=== PATIENT | male | born 1980 | race Caucasian/White ===

== ENCOUNTER 2019-08-20 13:42 | Emergency (ER) | payer MEDICAID, SELFPAY ==
[2019-08-20 14:17] VITALS: BP 140/108; PULSE 130; RESP 14; TEMP 37.2; O2SAT 99
[2019-08-20 14:19] LABS: Basophils Percent Auto 0.2 % (0.2-1.2); Eosinophils Percent Auto 0.4 % (0-4.4); Hematocrit 43.4 % (42.0-52.0); Hemoglobin 15.1 g/dL (14.0-18.0); Immature Granulocyte Absolute 0.02 K/mm3 (0.00-0.031); Immature Granulocyte Percent A 0.2 % (0-0.5); Lymphocytes Absolute Auto 3.59 K/mm3 (0.9-3.2); Lymphocytes Percent Auto 44.2 % (18.3-44.2); Mean Corpuscular HGB Conc 34.8 g/dl (32-36); Mean Corpuscular Hemoglobin 30.3 pg (26-34); Mean Platelet Volume 8.1 fl (7.4-10.4); Monocytes Absolute Auto 0.5 K/mm3 (0.1-0.6); Monocytes Percent Auto 5.7 % (2.6-8.5); Neutrophils Percent Auto 49.3 % (45.5-73.1); Platelet Count Result 315 k/mm3 (150-375); Red Blood Count 4.99 M/mm3 (4.6-6.20); White Blood Count 8.1 K/mm3 (4.5-10.0)
[2019-08-20 14:23] LABS: Add Urine Microscopic? NO; Appearance Urine Clear (Clear); Bilirubin Urine Negative (Negative); Blood Urine Negative (Negative); Color Urine Straw (Yellow); Glucose Urine UA Negative (Negative); Ketones Urine Negative (Negative); Leukocyte Esterase Ur Negative LEU/UL (Negative); Nitrate Urine Negative (Negative); Protein Urine Negative (Negative); RBC Urine 0-2 /hpf (0-2); Specific Grav Ur 1.006 (1.001-1.035); Urobilinogen Urine Negative mg/dL (<2.0); WBC Urine 0-3 /hpf
[2019-08-20 14:31] LABS: Blood Urea Nitrogen 7 mg/dL (9-20); Carbon Dioxide 30 mmol/L (22-30); Chloride 100 mmol/L (98-107); Estimated Glomerular Filt Rate > 60; Glucose 111 mg/dL (75-110); Potassium 3.9 mmol/L (3.4-5.0); Sodium 142 mmol/L (137-145)
[2019-08-20 14:38] LABS: Amphetamine Screen Urine Negative (Negative); Barbiturate Screen Urine Negative (Negative); Benzodiazepines Screen Urine Negative (Negative); Cannabinoid Screen Urine Negative (Negative); Cocaine Screen Urine Negative (Negative); Methadone Screen Urine Negative (Negative); Opiate Screen Urine Negative (Negative); Phencyclidine Screen Urine Negative (Negative)
[2019-08-20 14:56] LABS: Ethanol 400 mg/dL (<10)
[2019-08-20 15:13] VITALS: PULSE 94; O2SAT 99
--- NOTE | 2019-08-20 15:54 | ED.PSYCH ---
HPI - Psych General Chief Complaint: Psychiatric Symptoms <Anastasiia Tomlin MD - Last Filed: 08/21/19 10:35> Stated Complaint: BROUGHT IN BY PD, VOLUNTARY <Anastasiia Tomlin MD - Last Filed: 08/21/19 10:35> Time Seen by Provider: 08/20/19 15:52 <Anastasiia Tomlin MD - Last Filed: 08/21/19 10:35> History of Present Illness HPI Narrative: Patient brought in by the police for suicidal ideation. He is going through a difficult divorce, and had stated that he wanted to kill himself and he has guns. The patient does not know who called this into the police. Today took his 3 guns out of the house, and brought him into the hospital for evaluation. He was made involuntary, and has to wait for his alcohol to be less than 80 for a psych evaluation. His alcohol is 400 upon admission, when he is unhappy that he cannot have his cell phone to call someone to pick him up. I explained that I would be back in the morning and see him then and hopefully we would get him discharged then. He denies any medical illness. He denies depression. He is off work for a week. He was in [place] for a week in February. Surgical history is appendectomy. He drinks alcohol. <Anastasiia Tomlin MD - Last Filed: 08/21/19 10:35> complaint: suicidal ideation <Anastasiia Tomlin MD - Last Filed: 08/21/19 10:35> History of same: Yes <Anastasiia Tomlin MD - Last Filed: 08/21/19 10:35> Related Data Home Medications: Home Medications Medication Instructions Recorded Confirmed escitalopram oxalate [Lexapro] 20 mg PO DAILY 08/20/19 <Anastasiia Tomlin MD - Last Filed: 08/21/19 10:35> Allergies/Adverse Reactions: Allergies Allergy/AdvReac Type Severity Reaction Status Date / Time No Known Allergies Allergy Mild Verified 08/20/19 14:21 <Anastasiia Tomlin MD - Last Filed: 08/21/19 10:35> Review of Systems Review of Systems: Narrative: CONSTITUTIONAL: Denies fever, chills, or sweats. EYES: Denies visual changes, redness, or discharge. ENT: Denies rhinorrhea, congestion, sore throat, or otalgia. CARDIOVASCULAR: Denies chest pain, palpitations, or edema. RESPIRATORY: Denies cough or dyspnea. GASTROINTESTINAL: Denies abdominal pain, nausea, vomiting, or diarrhea. GENITOURINARY: Denies dysuria or hematuria. SKIN: Denies rash or itching. MUSCULOSKELETAL: Denies back pain, joint pain, or myalgia. NEUROLOGIC: Denies headache, numbness, or weakness. PSYCHIATRIC: Denies anxiety or depression. <Anastasiia Tomlin MD - Last Filed: 08/21/19 10:35> [facility] Surgical History Surgical History: Surgical History History of appendectomy <Anastasiia Tomlin MD - Last Filed: 08/21/19 10:35> Social History Social History: Social History (Updated 08/20/19 @ 16:28 by Anastasiia Tomlin MD) Alcohol intake: current <Anastasiia Tomlin MD - Last Filed: 08/21/19 10:35> Exam Narrative: Exam Narrative: GENERAL: Well-appearing, well-nourished, and in no acute distress. HEAD: Normocephalic, atraumatic. EYES: PERRLA and EOMI. ENT: Nares clear, no rhinorrhea or epistaxis. Mucous membranes moist. NECK: Supple. CHEST: Clear to auscultation. No respiratory distress. HEART: Regular rate and rhythm. No murmur heard. Normal peripheral pulses. ABDOMEN: Soft, nontender, nondistended, normal active bowel sounds. EXTREMITIES: Normal range of motion. No edema. SKIN: Warm, dry, no rash. NEURO: No focal deficits. Alert and oriented x3. PSYCH: Normal mood and affect. <Anastasiia Tomlin MD - Last Filed: 08/21/19 10:35> Course Reevaluation(s) Reevaluation #1: Patient is resting comfortably waiting for dinner. Again he asked if he could leave and I told him not until he seen by the psych nurse. Told him I will see him in the morning before he gets discharged. I will be checking out to Dr. Ramos at 7 PM. <Anastasiia Tomlin MD - Last Filed: 08/21/19 10:35> Date: 08/20/19 <Anastasiia Tomlin MD - Last Fi
--- NOTE | 2019-08-20 16:48 | PC.NURSE ---
Called to pt's room - Mr Pascal is sitting on the floor explaining how the situation is going to go. He states he wants his cell phone and clothes back States will saundra everybody holding him against his will I attempted to explain he is under an involuntary petition by the [facility] and he will not be leaving until his blood alcohol level is down and crisis has been out to eval him. Pt states I want all your information so I can saundra you for holding me against my will .
[2019-08-21 03:58] LABS: Ethanol < 10 mg/dL (<10)
[2019-08-21 05:27] VITALS: BP 138/85; PULSE 99; RESP 16; O2SAT 100
== END 2019-08-21 05:29 | disposition home or self-care (01) ==
PROVIDERS: Emergency Medicine; Emergency Provider Emergency Medicine; PCP Family Medicine
DX: F10.229 Alcohol dependence with intoxication, unspecified (principal); Y90.8 Blood alcohol level of 240 mg/100 ml or more
CPT/HCPCS: 36415; 80048; 80307; 81003; 84443; 85025; 99284

== ENCOUNTER 2019-11-24 16:08 | Emergency (ER) | payer MEDICAID, SELFPAY ==
[2019-11-24 16:17] VITALS: BP 150/91; PULSE 82; RESP 18; TEMP 36.4; O2SAT 100
[2019-11-24 16:52] LABS: Basophils Percent Auto 0.4 % (0.2-1.2); Eosinophils Percent Auto 0.4 % (0-4.4); Hematocrit 40.6 % (42.0-52.0); Hemoglobin 14.4 g/dL (14.0-18.0); Immature Granulocyte Absolute 0.02 K/mm3 (0.00-0.031); Immature Granulocyte Percent A 0.4 % (0-0.5); Lymphocytes Absolute Auto 1.14 K/mm3 (0.9-3.2); Lymphocytes Percent Auto 20.5 % (18.3-44.2); Mean Corpuscular HGB Conc 35.5 g/dl (32-36); Mean Corpuscular Hemoglobin 31.7 pg (26-34); Mean Corpuscular Volume 89.4 fl (80-100); Mean Platelet Volume 8.3 fl (7.4-10.4); Monocytes Absolute Auto 0.6 K/mm3 (0.1-0.6); Monocytes Percent Auto 11.2 % (2.6-8.5); Neutrophils Absolute Auto 3.7 K/mm3 (1.3-6.7); Neutrophils Percent Auto 67.1 % (45.5-73.1); Platelet Count Result 137 k/mm3 (150-375); Red Blood Count 4.54 M/mm3 (4.6-6.20); Red Cell Distribution Width 13.1 % (11.5-14.5); White Blood Count 5.6 K/mm3 (4.5-10.0)
[2019-11-24 17:04] LABS: Alanine Aminotransferase 80 U/L (4-50); Albumin Level 4.8 g/dL (3.5-5.1); Alkaline Phosphatase 100 U/L (38-126); Anion Gap 11 mmol/L (8-16); Aspartate Amino Transferase 99 U/L (17-59); Bilirubin,Total 1.3 mg/dL (0.2-1.3); Blood Urea Nitrogen 12 mg/dL (9-20); Calcium 9.3 mg/dL (8.4-10.2); Carbon Dioxide 30 mmol/L (22-30); Chloride 92 mmol/L (98-107); Estimated CRCL calculation 116 ml/min; Estimated Glomerular Filt Rate > 60; Glucose 113 mg/dL (75-110); Magnesium 1.9 mg/dL (1.6-2.3); Potassium 3.5 mmol/L (3.4-5.0); Sodium 133 mmol/L (137-145)
--- NOTE | 2019-11-24 17:16 | ED.ALCOHOL ---
HPI - Alcohol General Chief Complaint: Alcohol Stated Complaint: detoxing Time Seen by Provider: 11/24/19 16:34 Source: patient Mode of arrival: ambulatory Limitations: no limitations History of Present Illness HPI narrative: Patient is a 39-year-old male complaining of nausea, headache, occasional mild tremors after withdrawing from alcohol 4 days ago. Patient states he was drinking heavily prior and stopped approximately 4 days ago. He denies any chest pain shortness of breath abdominal pain diarrhea or fever. Related Data Home Medications Medication Instructions Recorded Confirmed escitalopram oxalate [Lexapro] 20 mg PO DAILY 08/20/19 Allergies Allergy/AdvReac Type Severity Reaction Status Date / Time Penicillins Allergy Unknown Verified 11/24/19 16:40 [facility] Social History Social History (Updated 08/20/19 @ 16:28 by Anastasiia Tomlin MD) Alcohol intake: current Gender identity (if verbalized by the patient): Male Sexual Orientation (if Verbalized by the Patient): Straight or Heterosexual Course Vital Signs Vital signs: Vital Signs Temperature 36.4 C 11/24/19 16:17 Pulse Rate 82 11/24/19 16:17 Respiratory Rate 18 11/24/19 16:17 Blood Pressure 150/91 H 11/24/19 16:17 Pulse Oximetry 100 11/24/19 16:17 Temperature 36.7 C 11/24/19 17:32 Pulse Rate 84 11/24/19 17:32 Respiratory Rate 14 11/24/19 17:32 Blood Pressure 133/97 H 11/24/19 17:32 Pulse Oximetry 99 11/24/19 17:32 MDM - Alcohol MDM Narrative Medical decision making narrative: CIWA score of 12, which amounts to a mild withdrawal symptoms. I have reviewed his labs and no electrolyte abnormality seen. Based on CIWA score, physical exam and lab findings I will discharge the patient home since patient did not exhibit any concerning signs and symptoms of delirium tremens. Differential Diagnosis Differential diagnosis: Likely hypomagnesemia, alcohol intoxication and alcohol withdrawal syndrome Medical Records Attestation: I reviewed the patient's medical records. Lab Data Attestation: I reviewed the patient's lab results. Result diagrams: 11/24/19 16:47 11/24/19 16:47 Labs: Lab Results 11/24/19 11/24/19 Range/Units 16:47 16:47 WBC 5.6 (4.5-10.0) K/mm3 RBC 4.54 L (4.6-6.20) M/mm3 Hgb 14.4 (14.0-18.0) g/dL Hct 40.6 L (42.0-52.0) % MCV 89.4 (80-100) fl MCH 31.7 (26-34) pg MCHC 35.5 (32-36) g/dl RDW 13.1 (11.5-14.5) % Plt Count 137 L D (150-375) k/mm3 MPV 8.3 (7.4-10.4) fl Immature Gran % (Auto) 0.4 (0-0.5) % Neut % (Auto) 67.1 (45.5-73.1) % Lymph % (Auto) 20.5 (18.3-44.2) % Cataño % (Auto) 11.2 H (2.6-8.5) % Eos % (Auto) 0.4 (0-4.4) % Baso % (Auto) 0.4 (0.2-1.2) % Lymph # (Auto) 1.14 (0.9-3.2) K/mm3 Cataño # (Auto) 0.6 (0.1-0.6) K/mm3 Eos # (Auto) 0.0 (0-0.3) K/mm3 Baso # (Auto) 0.0 (0.0-0.1) K/mm3 Abs Immat Gran (auto) 0.02 (0.00-0.031) K/mm3 Absolute Neuts (auto) 3.7 (1.3-6.7) K/mm3 Absolute Nucleated RBC 0.0 (0.0-0.012) K/mm3 Nucleated RBC % 0.0 (0.0-0.2) % Sodium 133 L (137-145) mmol/L Potassium 3.5 (3.4-5.0) mmol/L Chloride 92 L (98-107) mmol/L Carbon Dioxide 30 (22-30) mmol/L Anion Gap 11 (8-16) mmol/L BUN 12 D (9-20) mg/dL Creatinine 0.70 (0.7-1.3) mg/dL Estim Creat Clear Calc 116 ml/min Estimated GFR > 60 (59 - ) Glucose 113 H (75-110) mg/dL Calcium 9.3 (8.4-10.2) mg/dL Magnesium 1.9 (1.6-2.3) mg/dL Total Bilirubin 1.3 (0.2-1.3) mg/dL AST 99 H (17-59) U/L ALT 80 H (4-50) U/L Alkaline Phosphatase 100 (38-126) U/L Total Protein 7.0 (6.3-8.2) g/dL Albumin 4.8 (3.5-5.1) g/dL ECG Data EKG #1: ECG completion date: 11/26/19 ECG completion time: 17:28 EKG Interpretation: normal rate (hr 76), sinus rhythm, no ectopy, normal QT and NL axis Discharge Plan Discharge Clinical Impression: A
--- NOTE | 2019-11-24 17:19 | ECG_ITS ---
Measurements Intervals [place] Rate: 76 P: 26 TN: 114 QRS: 76 QRSD: 103 T: 66 QT: 365 QTc: 411 Interpretive Statements SINUS RHYTHM WITH SHORT TN INTERVAL BASELINE ARTIFACT- I, II, III, AVR, AVL, AVF, V1 BORDERLINE ECG Electronically Signed On 11-25-2019 7:42:29 CDT by Leonard Calderón D.O.
[2019-11-24 17:32] VITALS: BP 133/97; PULSE 84; RESP 14; TEMP 36.7; O2SAT 99
[2019-11-24] MEDS: LORazepam (*CRX) 1 MG TABLET PO (18:18)
[2019-11-24 18:21] VITALS: BP 144/95; PULSE 80; RESP 17; TEMP 37.1; O2SAT 99
[2019-11-24 19:39] VITALS: BP 143/91; PULSE 91; RESP 13; TEMP 36.7; O2SAT 99
== END 2019-11-24 19:41 | disposition home or self-care (01) ==
PROVIDERS: Emergency Provider Emergency Medicine; PCP Family Medicine
DX: F10.239 Alcohol dependence with withdrawal, unspecified (principal); R94.31 Abnormal electrocardiogram [ECG] [EKG]
CPT/HCPCS: 36415; 80053; 83735; 85025; 93005; 96365; 99284; A9270; J3411; J3475; J7121

== ENCOUNTER 2020-03-28 17:13 | Emergency (ER) | payer OTHER, SELFPAY ==
[2020-03-28] VITALS (21 sets, daily range): BP systolic 108–154; BP diastolic 71–96; PULSE 86–123; RESP 10–39; TEMP 36.4; O2SAT 95–100
--- NOTE | ~2020-03-28 | CT_ITS ---
EXAMINATION: CT brain wo con DATE: 03/28/2020 18:15 INDICATION: Altered mental status TECHNIQUE: Computed tomography (CT) of the head was performed without intravenous contrast. The mA wa s adjusted according to patient size. Iterative reconstruction technique was employed. Exam dose: 68 1.00 mGy-cm total exam DLP. COMPARISON: None FINDINGS: There is focal mid left ethmoid soft tissue opacification. The included paranasal sinuses a nd mastoid air cells are otherwise normal. No fracture or bone destruction of the cranial vault. No intracranial mass lesion or hemorrhage or cerebrovascular accident. No midline shift or mass effe ct. No subdural or epidural hematoma. IMPRESSION: No intracranial abnormality Reviewed, dictated and finalized at [facility] Reviewed, dictated and finalized at [facility] PIT WORKER IMPRESSION: No intracranial abnormality
--- NOTE | 2020-03-28 17:33 | ECG_ITS ---
Measurements Intervals [place] Rate: 94 P: 66 [place]: 116 QRS: 78 QRSD: 110 T: 69 QT: 362 QTc: 454 Interpretive Statements SINUS RHYTHM WITH SHORT [place] INTERVAL INCOMPLETE RIGHT BUNDLE BRANCH BLOCK BASELINE ARTIFACT- V3 BORDERLINE ECG Electronically Signed On 03-28-2020 19:22:01 COMMUNICATIONS PROFESSIONAL by Leonard Calderón D.O.
[2020-03-28] MEDS: HALOPERIDOL LACTATE 5 MG/ML VIAL 10 MG IV PUSH (17:43)
--- NOTE | 2020-03-28 17:50 | ECG_ITS ---
Measurements Intervals [place] Rate: 100 P: 8 UT: 107 QRS: 69 QRSD: 114 T: 54 QT: 333 QTc: 431 Interpretive Statements SINUS TACHYCARDIA WITH SHORT UT INTERVAL MISSING LEAD V2 INTRAVENTRICULAR CONDUCTION DELAY BASELINE ARTIFACT- V1 BORDERLINE ECG Electronically Signed On 03-29-2020 8:18:09 COMMERCIAL LOAN ADMINISTRATOR by Leonard Calderón D.O.
[2020-03-28 17:51] LABS: Basophils Percent Auto 0.3 % (0.2-1.2); Eosinophils Percent Auto 0.1 % (0-4.4); Hematocrit 44.5 % (42.0-52.0); Immature Granulocyte Absolute 0.02 K/mm3 (0.00-0.031); Immature Granulocyte Percent A 0.3 % (0-0.5); Lymphocytes Absolute Auto 4.83 K/mm3 (0.9-3.2); Lymphocytes Percent Auto 66.4 % (18.3-44.2); Mean Corpuscular HGB Conc 33.7 g/dl (32-36); Mean Corpuscular Hemoglobin 32.2 pg (26-34); Mean Corpuscular Volume 95.5 fl (80-100); Mean Platelet Volume 7.9 fl (7.4-10.4); Monocytes Absolute Auto 0.4 K/mm3 (0.1-0.6); Monocytes Percent Auto 5.6 % (2.6-8.5); Neutrophils Percent Auto 27.3 % (45.5-73.1); Platelet Count Result 409 k/mm3 (150-375); Red Blood Count 4.66 M/mm3 (4.6-6.20); Red Cell Distribution Width 14.1 % (11.5-14.5); White Blood Count 7.3 K/mm3 (4.5-10.0)
[2020-03-28] MEDS: LACTATED RINGERS 1,000 ML 999 ML IV CONT ×2 (17:53→22:15)
[2020-03-28 18:09] LABS: Add Urine Microscopic? NO; Appearance Urine Clear (Clear); Bilirubin Urine Negative (Negative); Blood Urine Negative (Negative); Color Urine Straw (Yellow); Glucose Urine UA Negative (Negative); Ketones Urine Negative (Negative); Leukocyte Esterase Ur Negative LEU/UL (Negative); Nitrate Urine Negative (Negative); Protein Urine Negative (Negative); Specific Grav Ur 1.008 (1.001-1.035); Urobilinogen Urine Negative mg/dL (<2.0)
[2020-03-28 18:09] LABS: Alanine Aminotransferase 342 U/L (4-50); Albumin Level 4.9 g/dL (3.5-5.1); Alkaline Phosphatase 135 U/L (38-126); Anion Gap 14 mmol/L (8-16); Aspartate Amino Transferase 177 U/L (17-59); Bilirubin,Total 0.6 mg/dL (0.2-1.3); Blood Urea Nitrogen 7 mg/dL (9-20); Calcium 8.9 mg/dL (8.4-10.2); Carbon Dioxide 27 mmol/L (22-30); Chloride 108 mmol/L (98-107); Creatine Kinase 139 U/L (55-170); Estimated CRCL calculation 124 ml/min; Estimated Glomerular Filt Rate > 60; Glucose 104 mg/dL (75-110); Potassium 4.6 mmol/L (3.4-5.0); Sodium 149 mmol/L (137-145)
[2020-03-28 18:11] LABS: Acetaminophen < 10 ug/mL (10-30)
[2020-03-28 18:12] LABS: Lactic Acid Reflex 2.8 mmol/L (0.7-2.1)
[2020-03-28 18:18] LABS: Ethanol 473 mg/dL (<10)
[2020-03-28 18:24] LABS: Amphetamine Screen Urine Negative (Negative); Barbiturate Screen Urine Negative (Negative); Benzodiazepines Screen Urine Negative (Negative); Cannabinoid Screen Urine Negative (Negative); Cocaine Screen Urine Negative (Negative); Methadone Screen Urine Negative (Negative); Opiate Screen Urine Negative (Negative); Phencyclidine Screen Urine Negative (Negative)
--- NOTE | 2020-03-28 18:54 | PC.NURSE ---
Spoke with patients dad and states patient has been making suicidal comments several times this weekend. Advised father that when patients ETOH level is within normal limits we will assess his Treasure scale. Father states patient has told him I am going to hang myself with some cables at home.
--- NOTE | 2020-03-28 19:37 | ED.AMS ---
HPI - Altered Mental Status General Chief Complaint: Altered Mental Status Stated Complaint: ALOC Time Seen by Provider: 03/28/20 17:33 Source: EMS Mode of arrival: EMS Limitations: altered mental status, clinical condition and intoxication History of Present Illness HPI narrative: 39-year-old male Brought in by EMS accompanied by police who have handcuffed the patient because he is belligerent and combative He apparently wandered into a [employer] restaurant in his underwear apparently somehow mistaking it for his dwelling. The restaurant which specializes in healthy lifestyle type of food took exception to this and called 911. Acquaintances of called the ER to report that the patient's lifestyle generally includes consumption of large amounts of vodka and they are suspecting that that is the case today. Patient does not give any terribly useful history as mostly he is shouting profanities at the police and EMS, but does confess to drinking the aforementioned vodka today. Related Data Home Medications Medication Instructions Recorded Confirmed No Home Medications 03/28/20 03/28/20 Allergies Allergy/AdvReac Type Severity Reaction Status Date / Time No Known Allergies Allergy Verified 03/28/20 17:25 Review of Systems Review of Systems: ROS unobtainable: Yes unobtainable due to medical condition, unobtainable due to mental status and other (Uncooperative patient) PMFSH Social History Social History Gender identity (if verbalized by the patient): Male Exam Const: General: well developed, alert, awake and confusion Nutritional Appearance: well nourished Other: Belligerent, combative, appears intoxicated HENMT: Head: normal to inspection, normocephalic, atraumatic, no contusions and no hematomas Ears: external ears normal General nose exam: No nasal discharge present and no epistaxis Face and sinus: face symmetric Eyes: Conjunctivae: conjunctivae normal Sclera: sclerae normal Pupils: Equal, round and reactive pupils present Neck: Neck: normal visual inspection, supple and no JVD Chest: Chest palpation & inspection: deferred Resp: Effort & Inspection: normal respiratory effort Auscultation: clear to auscultation bilaterally and other (BS =) Cardio: Rate: regular rate and tachycardic Rhythm: regular rhythm Heart sounds: no gallops and no murmurs GI: Inspection: normal to inspection and non-distended GI Palp: Yes Soft to palpation : General: Yes no CVA tenderness Back/Spine/Pelvis: Thoracic/Lumbar Spine: thoracic and lumbar spine normal to inspection Skin: General skin exam: normal color and no rashes or lesions noted Neuro: Cranial nerves: Yes facial symmetry Other: Grossly he moves everything equally x4 but is not cooperative with following any kind of instructions for a neurologic exam Extrem: General: normal to inspection, full ROM and no pedal edema Psych: Attitude: not cooperative Course Course Emergency Course: On arrival he was transferred from handcuffs in police custody into a [facility] for the safety of both himself and staff He got an EKG and received Haldol He went to sleep and was able to be successfully examined and scanned Apart from his considerable ethanol ingestion evaluation is unremarkable On repeat assessment he is calm and fairly cooperative, denies any intention or plan of self-harm, and would appear to be dischargeable if he could get somebody to come and pick him up and he is making some phone calls to investigate that possibility at time of shift change Vital Signs Vital signs: Vital Signs Temperature 36.4 C L 03/28/20 17:13 Pulse Rate 123 H 03/28/20 17:13 Respiratory Rate 39 H 03/28/20 17:13 Blood Pressure 154/96 H 03/28/20 17:13 Pulse Oximetry 100 03/28/20 17:13 Temperature 36.4 C L 03/28/20 17:13 Pulse Rate 98 03/28/20 19:46 Respiratory Rate 11 L 03/28/20 18:45 Blood Pressure 120/83 03/28/20 19:46 Puls
[2020-03-28 19:48] LABS: Thyroid Stimulating Hormone Reflex 0.577 uIU/mL (0.465-4.68)
[2020-03-28 20:59] LABS: Reflex Lactic Acid Yes or No Add Lactic
[2020-03-28 21:38] LABS: Lactic Acid 2.6 mmol/L (0.7-2.1)
--- NOTE | 2020-03-28 22:12 | PC.NURSE ---
Pt awake and oriented x4. States he would like to go home if possible. Pt also denying any thoughts of SI. States oh god no, i have too much to live for. notified.
--- NOTE | 2020-03-28 22:15 | PC.NURSE ---
received report from Neetu RAYA. patient here with intoxication. some concerns for increased depressed per patient's father. plan for patient to get IVF and recheck ETOH or family member can pick him up. patient resting on stretcher. no change in condition.
--- NOTE | 2020-03-28 23:25 | PC.NURSE ---
discussed with patient policy for his discharge home. if patient has friend or family member to come get him and be responsible, he can be discharged. patient still intoxicated. alert and oriented but states he has no one to call. advised that he will not be discharged then until he is sober.
--- NOTE | 2020-03-29 00:20 | PC.NURSE ---
resting on stretcher. pulled monitors off. awakens easily to verbal stimuli. appear comfortable. sleeping most of the time. no change in condition. will continue to monitor.
--- NOTE | 2020-03-29 02:04 | PC.NURSE ---
spoke with charge nurse. patient's ETOH was drawn 8 hours ago but level >400. it will most likely take 16 hours for patient to be technically sober. patient asleep now. no contact numbers found on facesheet. no cell phone seen in room.
--- NOTE | 2020-03-29 03:12 | PC.NURSE ---
resting on stretcher. appears comfortable. sleeping. awakens easily. report given to Sagrario RAYA.
--- NOTE | 2020-03-29 05:25 | PC.NURSE ---
Pt's father Sujit called for an update. Spoke with patient and got permission to update pt's father. Pt alert and answering questions appropriately. Pt given PO fluids.
[2020-03-29 05:46] VITALS: BP 109/56; PULSE 97; RESP 16; O2SAT 98
== END 2020-03-29 09:12 | disposition home or self-care (01) ==
PROVIDERS: Emergency Provider Emergency Medicine; PCP Family Medicine
DX: F10.129 Alcohol abuse with intoxication, unspecified (principal); Y90.8 Blood alcohol level of 240 mg/100 ml or more; I45.10 Unspecified right bundle-branch block; R00.0 Tachycardia, unspecified; I45.9 Conduction disorder, unspecified
CPT/HCPCS: 36415; 70450; 80053; 80307; 81003; 82550; 83605; 84443; 85025; 93005; 96361; 96374; 99284; J1630; J7120

== ENCOUNTER 2020-08-13 23:23 | Emergency (ER) | payer OTHER, SELFPAY ==
[2020-08-13 23:21] VITALS: PULSE 108; RESP 15; TEMP 36.4; O2SAT 100
[2020-08-13 23:30] VITALS: BP 125/79; PULSE 100; RESP 18; O2SAT 100
--- NOTE | 2020-08-13 23:32 | ECG_ITS ---
Measurements Intervals [place] Rate: 93 P: 66 [place]: 126 QRS: 70 QRSD: 114 T: 56 QT: 362 QTc: 452 Interpretive Statements SINUS RHYTHM POSSIBLE LEFT ATRIAL ENLARGEMENT INCOMPLETE RIGHT BUNDLE BRANCH BLOCK BORDERLINE ECG Electronically Signed On 08-14-2020 7:32:53 CDT by Leonard Calderón D.O.
[2020-08-13 23:45] VITALS: BP 130/76; PULSE 94; RESP 17; O2SAT 97
[2020-08-14] VITALS (18 sets, daily range): BP systolic 108–131; BP diastolic 68–92; PULSE 78–103; RESP 13–23; O2SAT 90–99
[2020-08-14 00:25] LABS: Basophils Percent Auto 0.5 % (0.2-1.2); Eosinophils Percent Auto 0.5 % (0-4.4); Hematocrit 40.3 % (42.0-52.0); Lymphocytes Absolute Auto 3.41 K/mm3 (0.9-3.2); Lymphocytes Percent Auto 51.4 % (18.3-44.2); Mean Corpuscular HGB Conc 34.7 g/dl (32-36); Mean Corpuscular Hemoglobin 31.5 pg (26-34); Mean Corpuscular Volume 90.6 fl (80-100); Mean Platelet Volume 7.8 fl (7.4-10.4); Monocytes Absolute Auto 0.3 K/mm3 (0.1-0.6); Monocytes Percent Auto 4.8 % (2.6-8.5); Neutrophils Absolute Auto 2.8 K/mm3 (1.3-6.7); Neutrophils Percent Auto 42.8 % (45.5-73.1); Platelet Count Result 311 k/mm3 (150-375); Red Blood Count 4.45 M/mm3 (4.6-6.20); Red Cell Distribution Width 13.7 % (11.5-14.5); White Blood Count 6.6 K/mm3 (4.5-10.0)
[2020-08-14 00:33] LABS: Alanine Aminotransferase 34 U/L (4-50); Albumin Level 4.5 g/dL (3.5-5.1); Alkaline Phosphatase 104 U/L (38-126); Anion Gap 16 mmol/L (8-16); Aspartate Amino Transferase 74 U/L (17-59); Bilirubin,Total 0.2 mg/dL (0.2-1.3); Blood Urea Nitrogen 9 mg/dL (9-20); Calcium 8.8 mg/dL (8.4-10.2); Carbon Dioxide 27 mmol/L (22-30); Chloride 106 mmol/L (98-107); Estimated Glomerular Filt Rate > 60; Glucose 103 mg/dL (75-110); Potassium 3.6 mmol/L (3.4-5.0); Sodium 149 mmol/L (137-145)
[2020-08-14] MEDS: SODIUM CHLORIDE 0.9% IV 1,000 ML 999 ML IV CONT (00:49)
[2020-08-14 01:03] LABS: Ethanol 515 mg/dL (<10)
--- NOTE | 2020-08-14 01:07 | ED.GENADULT ---
HPI - General Adult General Chief complaint: Alcohol Stated complaint: ams Time Seen by Provider: 08/13/20 23:42 History of Present Illness HPI narrative: Patient 40-year-old gentleman who presents the emergency department with chief complaint of altered mental status. Patient was found by EMS confused and apparently intoxicated patient has history of episodes where he has become intoxicated and wandered into establishments with at times minimal clothing on. The patient currently has no complaints reports has had no trauma reports that he drank alcohol tonight Related Data Home Medications Medication Instructions Recorded Confirmed No Home Medications 03/28/20 03/28/20 Allergies Allergy/AdvReac Type Severity Reaction Status Date / Time No Known Allergies Allergy Verified 03/28/20 17:25 Review of Systems Review of Systems: Narrative: A 10 system review of systems was completed on the patient and is negative except for what is stated in the HPI. Nursing and ancillary documentation was reviewed. [facility] Social History Social History Gender identity (if verbalized by the patient): Male Comments Patient denies significant past medical history Social history the patient reports to alcohol abuse Exam Narrative: Exam Narrative: GENERAL: Well-appearing, well-nourished, and in no acute distress. HEAD: Normocephalic, atraumatic. EYES: PERRLA and EOMI. ENT: Nares clear, no rhinorrhea or epistaxis. Mucous membranes moist. NECK: Supple. CHEST: Clear to auscultation. No respiratory distress. HEART: Regular rate and rhythm. No murmur heard. Normal peripheral pulses. ABDOMEN: Soft, nontender, nondistended, normal active bowel sounds. EXTREMITIES: Normal range of motion. No edema. SKIN: Warm, dry, no rash. NEURO: No focal deficits. Alert and oriented x3. PSYCH: Normal mood and affect. Course Course Emergency Course: The patient is protecting his airway sleeping comfortably patient will be allowed to metabolize the alcohol in his system and at times which he is clinically sober and able to leave in the custody of a nonintoxicated individual the patient will be discharged home Vital Signs Vital signs: Vital Signs Temperature 36.4 C 08/13/20 23:21 Pulse Rate 108 H 08/13/20 23:21 Respiratory Rate 15 08/13/20 23:21 Pulse Oximetry 100 08/13/20 23:21 Temperature 36.4 C 08/13/20 23:21 Pulse Rate 91 08/14/20 05:08 Respiratory Rate 15 08/14/20 05:08 Blood Pressure 123/85 08/14/20 05:08 Pulse Oximetry 98 08/14/20 05:08 Medical Decision Making Vital Signs Vital Signs: Vital Signs Temperature 36.4 C 08/13/20 23:21 Pulse Rate 108 H 08/13/20 23:21 Respiratory Rate 15 08/13/20 23:21 Pulse Oximetry 100 08/13/20 23:21 Temperature 36.4 C 08/13/20 23:21 Pulse Rate 91 08/14/20 05:08 Respiratory Rate 15 08/14/20 05:08 Blood Pressure 123/85 08/14/20 05:08 Pulse Oximetry 98 08/14/20 05:08 Lab Data Result diagrams: 08/14/20 00:16 08/14/20 00:16 Labs: Lab Results 08/14/20 08/14/20 08/14/20 Range/Units 00:16 00:16 00:16 WBC 6.6 (4.5-10.0) K/mm3 RBC 4.45 L (4.6-6.20) M/mm3 Hgb 14.0 (14.0-18.0) g/dL Hct 40.3 L (42.0-52.0) % MCV 90.6 (80-100) fl MCH 31.5 (26-34) pg MCHC 34.7 (32-36) g/dl RDW 13.7 (11.5-14.5) % Plt Count 311 (150-375) k/mm3 MPV 7.8 (7.4-10.4) fl Immature Gran % (Auto) 0.0 (0-0.5) % Neut % (Auto) 42.8 L (45.5-73.1) % Lymph % (Auto) 51.4 H (18.3-44.2) % Tripp % (Auto) 4.8 (2.6-8.5) % Eos % (Auto) 0.5 (0-4.4) % Baso % (Auto) 0.5 (0.2-1.2) % Lymph # (Auto) 3.41 H (0.9-3.2) K/mm3 Tripp # (Auto) 0.3 (0.1-0.6) K/mm3 Eos # (Auto) 0.0 (0-0.3) K/mm3 Baso # (Auto) 0.0 (0.0-0.1) K/mm3 Abs Immat Gran (auto) 0.00 (0.00-0.031) K/mm3 Absolute Neuts (auto) 2
[2020-08-14 01:09] LABS: Add Urine Microscopic? NO; Appearance Urine Clear (Clear); Bilirubin Urine Negative (Negative); Blood Urine Negative (Negative); Color Urine Straw (Yellow); Glucose Urine UA Negative (Negative); Ketones Urine Negative (Negative); Leukocyte Esterase Ur Negative LEU/UL (Negative); Nitrate Urine Negative (Negative); Protein Urine Negative (Negative); Specific Grav Ur 1.006 (1.001-1.035); Urobilinogen Urine Negative mg/dL (<2.0)
--- NOTE | 2020-08-14 01:42 | PC.NURSE ---
attempted to call Ivory Orosco at [phone]. No answer.
--- NOTE | 2020-08-14 02:16 | PC.NURSE ---
Went in to give ativan- pt states I am over-dosing her. I educated the pt on the amount of medication that has been given and what I was going to give. Pt became upset and continued to state I was overdosing her and that I was being rude. I asked pt 2x if she wanted the ativan, she states yes and was again upset that I was over-dosing her.
--- NOTE | 2020-08-14 02:16 | PC.NURSE ---
Pt. sister Ivory called back in regards to pt. Updated her on pt. status. States she can come up in the morning to visit. [phone]
--- NOTE | 2020-08-14 09:14 | PC.NURSE ---
pt alert and oriented X 4. pt able to ambulate without difficulty.
== END 2020-08-14 09:34 | disposition home or self-care (01) ==
PROVIDERS: Emergency Medicine; Emergency Provider Emergency Medicine; PCP Family Medicine
DX: F10.120 Alcohol abuse with intoxication, uncomplicated (principal); Y90.8 Blood alcohol level of 240 mg/100 ml or more; R94.31 Abnormal electrocardiogram [ECG] [EKG]; I45.10 Unspecified right bundle-branch block
CPT/HCPCS: 36415; 80053; 80307; 81003; 85025; 93005; 96360; 96361; 99283; J7030

== ENCOUNTER 2020-08-15 17:08 | Emergency (ER) | payer OTHER, SELFPAY ==
[2020-08-15] VITALS (13 sets, daily range): BP systolic 124–153; BP diastolic 70–87; PULSE 86–121; RESP 14–22; TEMP 36.3–37; O2SAT 94–99
--- NOTE | 2020-08-15 17:45 | ED.ALCOHOL ---
HPI - Alcohol General Chief Complaint: Alcohol Stated Complaint: ETOH Time Seen by Provider: 08/15/20 17:45 History of Present Illness Amount of alcohol consumed: Brought in by EMS for alcohol intoxication. His friends found him passed out in the garage and were reportedly concerned about his drinking. He admits to drinking heavily recently. He does report that he wants to quit drinking. He denies trying to harm himself. He was seen here 2 days ago for the same thing. Related Data Home Medications Medication Instructions Recorded Confirmed citalopram mg 08/14/20 folic acid 08/14/20 thiamine HCl (vitamin B1) 08/14/20 Allergies Allergy/AdvReac Type Severity Reaction Status Date / Time Penicillins AdvReac Swelling Verified 08/14/20 07:16 Review of Systems Review of Systems: All systems reviewed & are unremarkable except as noted in HPI and below Constitutional: Constitutional: Denies fever(s) Cardiovascular: Cardiovascular: Denies chest pain Respiratory: Respiratory: Denies dyspnea Gastrointestinal: Gastrointestinal: Denies abdominal pain, Denies nausea and Denies vomiting Neurologic: Denies numbness and Denies weakness Psychiatric: Psychiatric: Reports depression, Denies homicidal ideation and Denies suicidal ideation [facility] Social History Social History Substance use type: does not use Gender identity (if verbalized by the patient): Male Exam Const: General: healthy appearing, no acute distress and alert Orientation/consciousness: patient oriented x3 HENMT: Head: normal to inspection Neck: Neck: normal visual inspection and no lymphadenopathy Chest: Chest palpation & inspection: no tenderness Resp: Effort & Inspection: normal respiratory effort Auscultation: clear to auscultation bilaterally, no rales, no rhonchi and no wheezes Cardio: Jugular venous distension: no JVD Rate: regular rate Rhythm: regular rhythm Heart sounds: no murmurs GI: Inspection: non-distended GI Palp: Yes Soft to palpation and No Tenderness to palpation present (GI) Skin: General skin exam: normal color Neuro: General: patient oriented x3 and moves all extremities Speech: normal speech Extrem: General: no edema Psych: Appearance: well kempt Affect: normal affect Course Vital Signs Vital signs: Vital Signs Pulse Rate 121 H 08/15/20 17:11 Respiratory Rate 15 08/15/20 17:11 Pulse Oximetry 95 06/18/21 17:11 Temperature 37.0 C 08/15/20 17:30 Pulse Rate 115 H 08/15/20 18:46 Respiratory Rate 21 H 08/15/20 18:46 Blood Pressure 153/87 H 08/15/20 18:46 Pulse Oximetry 98 08/15/20 18:46 MDM - Alcohol MDM Narrative Medical decision making narrative: He is intoxicated, but fully oriented and able to make decisions. He denies any desire to harm himself. He does want to quit drinking. I will prescribe him a few days worth of librium as he is at significant risk of withdrawal. Differential Diagnosis Differential diagnosis: Likely alcohol intoxication Medical Records Attestation: I reviewed the patient's medical records. Discharge Plan Discharge Clinical Impression: Alcoholic intoxication Qualifiers: Complication of substance-induced condition: uncomplicated Qualified Code(s): F10.920 - Alcohol use, unspecified with intoxication, uncomplicated Patient Disposition: Home, Self-Care Condition: Stable Instructions: Abuse of Alcohol (ED) Prescriptions: New chlordiazepoxide HCl 25 mg capsule 25 mg PO Q8H PRN (Reason: alcohol withdrawal) Qty: 15 RF: 0 No Action thiamine HCl (vitamin B1) 100 mg tablet RF: 0 citalopram 20 mg tablet RF: 0 folic acid 1 mg tablet RF: 0 Follow-up/Referrals: Laury,Larissa Gibson MD [Primary Care Provider] -
--- NOTE | 2020-08-15 18:59 | PC.NURSE ---
EDP stated patient may leave if they have a friend or family member to pick patient up. Pt. requesting to use a ride-share. EDP stated patient must sober up more before using a ride-share.
== END 2020-08-15 20:50 | disposition home or self-care (01) ==
PROVIDERS: Emergency Provider Emergency Medicine; PCP Family Medicine
DX: F10.120 Alcohol abuse with intoxication, uncomplicated (principal); Y90.9 Presence of alcohol in blood, level not specified
CPT/HCPCS: 99283

== ENCOUNTER 2020-08-28 20:41 | Emergency (ER) | payer OTHER, SELFPAY ==
[2020-08-28] VITALS (10 sets, daily range): BP systolic 110–142; BP diastolic 66–97; PULSE 99–121; RESP 16–20; TEMP 37.6; O2SAT 92–97
--- NOTE | ~2020-08-28 | XR_ITS ---
EXAMINATION: XR chest 1V portable EXAM DATE: 08/28/2020 22:10 INDICATION: low oxygen saturation TECHNIQUE: Portable AP frontal chest x-ray was obtained. There is no prior study for comparison. FINDINGS: The lungs are clear. There are no pleural effusions. The cardiomediastinal silhouette is within normal limits. There is no pneumothorax suspected. The bones and soft tissues are unremarkab le. IMPRESSION: No acute cardiopulmonary findings. Reviewed, dictated and finalized at location G.
--- NOTE | 2020-08-28 20:58 | ECG_ITS ---
Measurements Intervals [place] Rate: 104 P: 64 IN: 123 QRS: 72 QRSD: 110 T: 69 QT: 341 QTc: 450 Interpretive Statements SINUS TACHYCARDIA INCOMPLETE RIGHT BUNDLE BRANCH BLOCK BASELINE ARTIFACT- V3 BORDERLINE ECG Electronically Signed On 08-29-2020 6:14:09 CDT by Leonard Calderón D.O.
[2020-08-28] MEDS: SODIUM CHLORIDE 0.9% IV 1,000 ML 999 ML IV CONT (21:10)
--- NOTE | 2020-08-28 21:11 | ED.ALCOHOL ---
HPI - Alcohol General Chief Complaint: Altered Mental Status Stated Complaint: etoh Time Seen by Provider: 08/28/20 20:45 Source: patient, RN notes reviewed and police Mode of arrival: EMS Limitations: intoxication History of Present Illness HPI narrative: This is a 40 year old male with history of alcohol abuse, depression who presents via EMS for evaluation of alcohol intoxication and suicidal statements. Police report that patient told his friend that he wanted to kill himself. Allegedly patient told police that he planned to cut himself with a large knife. Police report his blood alcohol level at that time was 0.357. Patient denies wanting to kill himself. HE denies being suicidal to me. He states he has been drinking every day since Tuesday, and he has not been eating . He denies previous suicidal attempts. He takes citalopram for depression. Related Data Home Medications Medication Instructions Recorded Confirmed citalopram mg 08/14/20 folic acid 08/14/20 thiamine HCl (vitamin B1) 08/14/20 Allergies Allergy/AdvReac Type Severity Reaction Status Date / Time Penicillins AdvReac Swelling Verified 08/28/20 20:45 Review of Systems Review of Systems: All systems reviewed & are unremarkable except as noted in HPI and below Constitutional: Constitutional: Denies chills and Denies fever(s) ENT: Denies sore throat Cardiovascular: Cardiovascular: Denies chest pain Respiratory: Respiratory: Denies cough and Denies dyspnea Gastrointestinal: Gastrointestinal: Denies abdominal pain, Denies diarrhea, Denies nausea and Denies vomiting Musculoskeletal: Musculoskeletal: Denies back pain Neurologic: Denies headache(s) Psychiatric: Psychiatric: Denies homicidal ideation and Denies suicidal ideation [facility] Past Medical History Medical History (Updated 08/29/20 @ 07:15 by Kandice Zamudio MD) Alcohol abuse Depression Surgical History Surgical History (Updated 08/28/20 @ 21:21 by Kandice Zamudio MD) History of appendectomy Social History Social History (Updated 08/28/20 @ 21:21 by Kandice Zamudio MD) Alcohol intake: current Substance use type: does not use Gender identity (if verbalized by the patient): Male Exam Const: General: no acute distress and alert Orientation/consciousness: patient oriented x3 Eyes: Pupils: Equal, round and reactive pupils present EOM: EOMs intact bilaterally Resp: Effort & Inspection: normal respiratory effort and no retractions Auscultation: clear to auscultation bilaterally Cardio: Rate: regular rate Rhythm: regular rhythm Heart sounds: no murmurs GI: GI Palp: Yes Soft to palpation, No Tenderness to palpation present (GI) and No Guarding due to palpation present (GI) Auscultation: normal bowel sounds Skin: General skin exam: normal color Rashes: no rashes Neuro: General: patient oriented x3, moves all extremities and CN's II-XI intact bilaterally Psych: Mental Status: mental status grossly normal Affect: normal affect Attitude: cooperative Course Reevaluation(s) Reevaluation #1: PAtient has been resting comfortably. He received IVF and he is currently getting a banana bag. He is awaiting for his alcohol to be below 80 for reassessment. I have discussed case with Dr. Adler who has accepted to take over care. Date: 08/29/20 Time: 07:13 Vital Signs Vital signs: Vital Signs Temperature 99.7 F H 08/28/20 20:38 Pulse Rate 121 H 08/28/20 20:38 Respiratory Rate 17 08/28/20 20:38 Blood Pressure 142/94 H 08/28/20 20:38 Pulse Oximetry 94 08/28/20 20:38 Temperature 99.7 F H 08/28/20 20:38 Pulse Rate 84 08/29/20 06:00 Respiratory Rate 16 08/29/20 06:00 Blood Pressure 108/77 08/29/20 06:00 Pulse Oximetry 96 08/29/20 02:15 MDM - Alcohol Medical Records Attestation: I reviewed the patient's medical records. Lab Data Attestation: I reviewed the patient's lab results. Result diagrams: 08/28/20 2
--- NOTE | 2020-08-28 21:32 | PC.NURSE ---
Ivory Orosco, step sister ([phone]) called for update.
--- NOTE | 2020-08-28 21:49 | PC.NURSE ---
Banana bag busted in the tube system. Pharmacy noted, will send another to floor shortly.
[2020-08-28 21:50] LABS: Basophils Percent Auto 0.6 % (0.2-1.2); Eosinophils Percent Auto 0.4 % (0-4.4); Hematocrit 40.6 % (42.0-52.0); Hemoglobin 13.9 g/dL (14.0-18.0); Immature Granulocyte Absolute 0.01 K/mm3 (0.00-0.031); Immature Granulocyte Percent A 0.2 % (0-0.5); Lymphocytes Absolute Auto 2.03 K/mm3 (0.9-3.2); Lymphocytes Percent Auto 41.7 % (18.3-44.2); Mean Corpuscular HGB Conc 34.2 g/dl (32-36); Mean Corpuscular Volume 93.3 fl (80-100); Mean Platelet Volume 7.9 fl (7.4-10.4); Monocytes Absolute Auto 0.3 K/mm3 (0.1-0.6); Neutrophils Absolute Auto 2.4 K/mm3 (1.3-6.7); Neutrophils Percent Auto 50.1 % (45.5-73.1); Platelet Count Result 282 k/mm3 (150-375); Red Blood Count 4.35 M/mm3 (4.6-6.20); Red Cell Distribution Width 13.9 % (11.5-14.5); White Blood Count 4.9 K/mm3 (4.5-10.0)
--- NOTE | 2020-08-28 21:54 | PC.NURSE ---
Pt unable to give urine sample at this time. Refusing straight catheter. Urinal at bedside. Pt instruction to hit call light when he has provided sample.
[2020-08-28 22:02] LABS: Alanine Aminotransferase 38 U/L (4-50); Albumin Level 4.1 g/dL (3.5-5.1); Alkaline Phosphatase 64 U/L (38-126); Anion Gap 13 mmol/L (8-16); Aspartate Amino Transferase 51 U/L (17-59); Bilirubin,Total 0.2 mg/dL (0.2-1.3); Blood Urea Nitrogen 8 mg/dL (9-20); Calcium 8.8 mg/dL (8.4-10.2); Carbon Dioxide 27 mmol/L (22-30); Chloride 105 mmol/L (98-107); Creatine Kinase 103 U/L (55-170); Estimated CRCL calculation 112 ml/min; Estimated Glomerular Filt Rate > 60; Glucose 139 mg/dL (75-110); Magnesium 1.6 mg/dL (1.6-2.3); Potassium 3.9 mmol/L (3.4-5.0); Sodium 145 mmol/L (137-145)
[2020-08-28 22:03] LABS: Acetaminophen < 10 ug/mL (10-30); Salicylate < 1.0 mg/dL (2-20)
[2020-08-28 22:04] LABS: Glucose Point of Care 146 mg/dl (65-105)
[2020-08-28 22:11] LABS: Ethanol 391 mg/dL (<10)
[2020-08-28] MEDS: THIAMINE HCL INJ 100 MG, FOLIC ACID INJ 1 MG, MULTIVITAMINS-12 INJ VIAL 1 5 ML, MULTIVI... IV CONT (22:22)
--- NOTE | 2020-08-28 22:26 | PC.NURSE ---
Pt unable to urinate at this time. Pt refusing straight catheter at this time. Urinal remains at bedside.
[2020-08-28 22:32] LABS: Thyroid Stimulating Hormone 0.767 uIU/mL (0.465-4.680)
[2020-08-28 22:36] LABS: INR 0.9; Partial Thromboplastin Time 27.5 SECONDS (22.3-36.8); Prothrombin Time 12.2 Seconds (11.1-14.7)
[2020-08-28 23:24] LABS: Amphetamine Screen Urine Negative (Negative); Barbiturate Screen Urine Negative (Negative); Benzodiazepines Screen Urine Negative (Negative); Cannabinoid Screen Urine Negative (Negative); Cocaine Screen Urine Negative (Negative); Methadone Screen Urine Negative (Negative); Opiate Screen Urine Negative (Negative); Phencyclidine Screen Urine Negative (Negative)
[2020-08-28 23:41] LABS: Add Urine Microscopic? YES; Appearance Urine Cloudy (Clear); Bilirubin Urine Negative (Negative); Blood Urine Negative (Negative); Color Urine Yellow (Yellow); Glucose Urine UA Negative (Negative); Ketones Urine Negative (Negative); Leukocyte Esterase Ur Negative LEU/UL (Negative); Nitrate Urine Negative (Negative); Protein Urine Negative (Negative); RBC Urine 0-2 /hpf (0-2); Urobilinogen Urine Negative mg/dL (<2.0); WBC Urine 0-3 /hpf
[2020-08-29] VITALS (18 sets, daily range): BP systolic 103–136; BP diastolic 60–86; PULSE 76–99; RESP 12–18; O2SAT 93–98
--- NOTE | 2020-08-29 08:30 | PC.NURSE ---
EDP at bedside for reevaluation of patient. Patient alert x3 at this time. Patient denies any SI or HI thoughts at this time. patient's sister present at bedside talking to EDP. EDP plan to discharge patient.
== END 2020-08-29 08:50 | disposition home or self-care (01) ==
PROVIDERS: General Practice; Emergency Provider Emergency Medicine; PCP Family Medicine
DX: F10.129 Alcohol abuse with intoxication, unspecified (principal); Y90.8 Blood alcohol level of 240 mg/100 ml or more; F32.9 Major depressive disorder, single episode, unspecified; R00.0 Tachycardia, unspecified; I45.10 Unspecified right bundle-branch block
CPT/HCPCS: 36415; 71045; 80053; 80307; 81001; 82550; 82948; 83735; 84443; 85025; 85610; 85730; 93005; 96361; 96365; 96366; 99284; J3411; J3475; J7030

== ENCOUNTER 2021-10-30 16:51 | Emergency (ER) | payer OTHER, SELFPAY ==
[2021-10-30 17:01] VITALS: BP 138/79; PULSE 133; RESP 16; TEMP 36.9; O2SAT 100
[2021-10-30 17:23] LABS: Basophils Percent Auto 0.4 % (0.2-1.2); Hematocrit 43.5 % (42.0-52.0); Immature Granulocyte Absolute 0.03 K/mm3 (0.00-0.031); Immature Granulocyte Percent A 0.4 % (0-0.5); Lymphocytes Absolute Auto 1.62 K/mm3 (0.9-3.2); Mean Corpuscular HGB Conc 34.5 g/dl (32-36); Mean Corpuscular Hemoglobin 30.7 pg (26-34); Mean Platelet Volume 8.2 fl (7.4-10.4); Monocytes Absolute Auto 0.2 K/mm3 (0.1-0.6); Monocytes Percent Auto 3.3 % (2.6-8.5); Neutrophils Absolute Auto 5.4 K/mm3 (1.3-6.7); Neutrophils Percent Auto 73.9 % (45.5-73.1); Platelet Count Result 160 k/mm3 (150-375); Red Blood Count 4.89 M/mm3 (4.6-6.20); Red Cell Distribution Width 13.4 % (11.5-14.5); White Blood Count 7.4 K/mm3 (4.5-10.0)
[2021-10-30 17:24] LABS: Appearance Urine Clear (Clear); Bilirubin Urine Negative (Negative); Color Urine Yellow (Yellow); Glucose Urine UA Negative (Negative); Ketones Urine 4+ mg/dL (Negative); Leukocyte Esterase Ur Negative LEU/UL (Negative); Nitrate Urine Negative (Negative); Protein Urine Trace mg/dL (Negative); Specific Grav Ur >= 1.030 (1.001-1.035); Urobilinogen Urine 0.2 mg/dL (<2.0)
[2021-10-30 17:34] LABS: INR 0.9; Prothrombin Time 11.9 Seconds (11.1-14.7)
[2021-10-30 17:35] LABS: Alanine Aminotransferase 90 U/L (6-50); Albumin Level 5.2 g/dL (3.5-5.1); Alkaline Phosphatase 98 U/L (38-126); Anion Gap 32 mmol/L (8-16); Aspartate Amino Transferase 164 U/L (17-59); Bilirubin,Total 0.7 mg/dL (0.2-1.3); Blood Urea Nitrogen 12 mg/dL (9-20); Calcium 8.4 mg/dL (8.4-10.2); Carbon Dioxide 13 mmol/L (22-30); Chloride 91 mmol/L (98-107); Estimated CRCL calculation 100 ml/min; Estimated Glomerular Filt Rate > 60; Glucose 73 mg/dL (65-110); Partial Thromboplastin Time 26.6 SECONDS (22.3-36.8); Potassium 4.1 mmol/L (3.4-5.0); Sodium 136 mmol/L (137-145)
[2021-10-30 17:45] LABS: Ethanol 336 mg/dL (<10)
[2021-10-30 17:57] LABS: Add Urine Microscopic? YES; Blood Urine Trace-Intact (Negative)
--- NOTE | 2021-10-30 18:14 | PC.NURSE ---
pt called twice. pt did not let anyone know that he was leaving. pt not present in er to be seen.
== END 2021-10-30 18:14 | disposition left against medical advice (07) ==
PROVIDERS: Emergency Provider Emergency Medicine; PCP Family Medicine
DX: F10.10 Alcohol abuse, uncomplicated (principal)
CPT/HCPCS: 36415; 80053; 80307; 81001; 85025; 85610; 85730; 99199